=== PATIENT | female | born 1980 | race American Indian/Alaskan Native ===

== ENCOUNTER 2019-09-01 02:09 | Emergency (ER) | payer SELFPAY ==
[2019-09-01 02:22] VITALS: BP 127/87
[2019-09-01] MEDS ORDERED: NORCO 5/325 PO ONE (05:34)
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
== END 2019-09-01 07:20 | disposition home or self-care (01) ==
LOC: ED 02:09
DX: J32.9 Chronic sinusitis, unspecified (principal); F17.200 Nicotine dependence, unspecified, uncomplicated
CPT/HCPCS: 70486